=== PATIENT | female | born 2005 | race African-American/Black ===

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

== ENCOUNTER 2023-01-08 20:48 | Emergency (ER) | payer BC ==
[2023-01-08] MEDS ORDERED: predniSONE 20 MG TAB ONE (21:41)
== END 2023-01-08 22:08 | disposition home or self-care (01) ==
LOC: CSHERS 20:48
DX: T78.40XA Allergy, unspecified, initial encounter (principal)
CPT/HCPCS: 99283; J7512

== ENCOUNTER 2023-09-20 19:54 | Emergency (ER) | payer BC | END 2023-09-21 00:25 | disposition home or self-care (01) | LOC: CSHERS 19:54 | DX: R55 Syncope and collapse (principal); M32.9 Systemic lupus erythematosus, unspecified | CPT/HCPCS: 93005 ==

== ENCOUNTER 2023-11-01 12:08 | Inpatient (IN) | payer BC ==
[~2023-11-01 12:08] MED LIST: Iopamidol 370 76% 100 ML VIAL ONE
[2023-11-01] MEDS ORDERED: Dextrose 50% Abboject 50 ML SYRINGE ONE (12:27)
[2023-11-01 12:53] LABS: BHCG - Serum Negative (NEGATIVE); Pregs Control Background? CLEAR/WHITE (CLR/WHITE); Pregs Control Bar Appear? YES (CONTROL BAR)
[2023-11-01 12:54] LABS: ALT (SGPT) 8 U/L (8-55); AST (SGOT) 15 U/L (5-34); Albumin 3.2 g/dL (3.5-5.0); Alkaline Phosphatase 37 U/L (40-100); Anion Gap 14 mmol/L (10-20); BUN (Urea Nitrogen) 8 mg/dL (7.0-18.7); Bilirubin, Total 0.5 mg/dL (0.2-1.2); Calc. Creatinine Clearance 0 mL/min (70-130); Carbon Dioxide 21 mmol/L (22-29); Chloride 102 mmol/L (98-107); Estimated GFR 113; Globulin 3.8 g/dL (2.4-3.5); Glucose 90 mg/dL (70-105); Potassium 3.7 mmol/L (3.5-5.1); Sodium 133 mmol/L (136-145)
[2023-11-01 12:58] LABS: Hematocrit 29.1 % (34.9-44.5); Hemoglobin 9.3 g/dL (12.0-15.5); Mean Corpuscular Hemoglobin 26.9 pg (27.0-33.0); Mean Corpuscular Volume 84.1 fl (81.6-98.3); Mean Platelet Volume 9.7 fl (7.4-10.4); Platelet Count 250 10x3/uL (150-450); RBC Distribution Width 15.1 % (11.5-14.5); Red Blood Cell (RBC) Count 3.46 10x6/uL (3.90-5.03); White Blood Cell (WBC) Count 5.6 10x3/uL (3.5-10.5)
[2023-11-01 12:59] LABS: MDiff Complete? YES
[2023-11-01 13:31] LABS: Band 3 % (5-11); Lymphocytes 17 % (28-48); Monocytes 4 % (0-4); Neutrophil 76 % (31-61); Troponin I Less than 0.010 ng/mL (< 0.028)
[2023-11-01 13:32] LABS: Platelet Adequacy Comment Appears Adequate; RBC Morph Comment Within Normal Limits
[2023-11-01 14:07] LABS: Bilirubin Neg (Negative); Blood, Urine 250 (Negative); Clarity Slightly Cloudy (Clear); Glucose, Urine (Dipstick) Normal (Negative); Ketone, Urine 5 mg/dL (Negative); Leukocyte Negative (Negative); Nitrite Positive (Negative); Protein, Urine (Dipstick) 15 mg/dl (Neg-Trace)
[2023-11-01 14:20] LABS: Bacteria/HPF 4+ HPF (None Seen); CAUTI Indications for Culture Pelvic or flank pain; RBC/HPF 0-3 HPF (0-3); Squamous Epithelial 0-3 HPF (0-3); Urine Culture Reflex No No; WBC/HPF None Seen HPF (0-3)
[2023-11-01] MEDS ORDERED: cefTRIAXone (ROCEPHIN) 2 GM VIAL ONE (14:27)
[2023-11-01] MEDS ORDERED: Acetaminophen 325 MG TAB PO PRN (15:17)
[2023-11-01 16:02] LABS: Iron 14 ug/dL (50-170); Iron Binding Capacity, Total 235 mcg/dL (265-497)
[2023-11-01] MEDS ORDERED: Ketorolac Tromethamine 30 MG (1 mL) VIAL ONE (17:05)
[2023-11-01 20:23] VITALS: BMI 30.2
[2023-11-01] MEDS: Famotidine 20 MG TAB PO SCH (20:56)
[2023-11-01] MEDS: Azithromycin 500 MG in Sodium Chloride 0.9% 250 ML 250 ML IVPB SCH (20:58)
[2023-11-01] MEDS ORDERED: Sodium Chloride 0.9% 1,000 ML IV SCH (21:00)
[2023-11-01] MEDS ORDERED: traMADol HCl 50 MG TAB PO SCH (21:00)
[2023-11-02 04:01] LABS: ALT (SGPT) Less than 7 U/L (8-55); AST (SGOT) 14 U/L (5-34); Albumin 2.6 g/dL (3.5-5.0); Alkaline Phosphatase 33 U/L (40-100); Anion Gap 9 mmol/L (10-20); BUN (Urea Nitrogen) 8 mg/dL (7.0-18.7); Bilirubin, Total 0.2 mg/dL (0.2-1.2); Calc. Creatinine Clearance 158 mL/min (70-130); Calcium 7.4 mg/dL (7.8-10.44); Carbon Dioxide 22 mmol/L (22-29); Chloride 108 mmol/L (98-107); Estimated GFR 128; Globulin 3.3 g/dL (2.4-3.5); Glucose 106 mg/dL (70-105); Protein, Total 5.9 g/dL (6.0-8.3); Sodium 135 mmol/L (136-145)
[2023-11-02 04:26] LABS: #Monocytes 0.2 10x3/uL (0.0-1.1); #Neutrophils 2.7 10x3/uL (1.5-8.4); %Basophils 0.5 % (0.0-2.0); %Monocytes 5.3 % (0.0-10.0); %Neutrophils 61.4 % (40.0-75.0); Hematocrit 24.6 % (34.9-44.5); Hemoglobin 7.8 g/dL (12.0-15.5); Mean Corpuscular HGB CONC 31.7 g/dL (32.0-36.0); Mean Corpuscular Hemoglobin 26.7 pg (27.0-33.0); Mean Corpuscular Volume 84.2 fl (81.6-98.3); Mean Platelet Volume 9.6 fl (7.4-10.4); Platelet Count 211 10x3/uL (150-450); RBC Distribution Width 15.2 % (11.5-14.5); Red Blood Cell (RBC) Count 2.92 10x6/uL (3.90-5.03); White Blood Cell (WBC) Count 4.4 10x3/uL (3.5-10.5)
[2023-11-02] MEDS: Famotidine 20 MG TAB PO SCH (09:10)
[2023-11-02] MEDS ORDERED: traMADol HCl 50 MG TAB PO PRN (09:12)
[2023-11-02] MEDS ORDERED: Morphine 2 MG/ML VIAL SLOW IVP PRN (09:12)
[2023-11-02] MEDS: Ondansetron PF 4 MG/2 ML Vial IVP PRN ×2 (11:14→17:54)
[2023-11-02] MEDS ORDERED: Hydrocortisone Sod Succ/PF 250 mg/2 ml Vial SLOW IVP SCH (12:59)
[2023-11-02] MEDS ORDERED: Polyethylene Glycol 3350 17 GM Packet PO SCH (13:00)
[2023-11-02 15:24] LABS: HIV (1/2) Antibody/Antigen Non-Reactive (NonReactive); HIV 1/2 INDEX 0.14 S/CO (<1.00)
[2023-11-02 15:25] LABS: Syphilis Antibody Nonreactive (Nonreactive); Syphilis Antibody Index 0.14 S/CO (<1.00 Non-Reactive)
[2023-11-02] MEDS ORDERED: cefTRIAXone\\ROCEPHIN 1 GM in Sodium Chloride 0.9% 100 ML IVPB SCH (15:30)
[2023-11-02 16:28] LABS: Reference Lab Name LABCORP
[2023-11-02 16:35] LABS: Ref Lab Test Ordered SMITH AB; Reference Lab Name LABCORP
[2023-11-02 16:38] LABS: Complement-C3 36 mg/dL (83-193); Complement-C4 6 mg/dL (15-57)
[2023-11-02] MEDS: Ferrous Sulfate 325 MG TAB PO SCH (17:54)
[2023-11-02] MEDS: Azithromycin 500 MG in Sodium Chloride 0.9% 250 ML 250 ML IVPB SCH (21:25)
[2023-11-02] MEDS: Hydroxychloroquine Sulfate 200 MG TAB PO SCH (21:25)
[2023-11-02] MEDS: Senokot S 8.6-50 MG TAB PO SCH (21:25)
[2023-11-03] MEDS: Ferrous Sulfate 325 MG TAB PO SCH ×2 (08:19→17:19)
[2023-11-03] MEDS: predniSONE 50 MG TAB PO SCH (08:19)
[2023-11-03 08:42] LABS: ALT (SGPT) 8 U/L (8-55); AST (SGOT) 16 U/L (5-34); Albumin 3.1 g/dL (3.5-5.0); Alkaline Phosphatase 36 U/L (40-100); Anion Gap 13 mmol/L (10-20); BUN (Urea Nitrogen) 8 mg/dL (7.0-18.7); Bilirubin, Total 0.3 mg/dL (0.2-1.2); Calc. Creatinine Clearance 161 mL/min (70-130); Calcium 8.4 mg/dL (7.8-10.44); Carbon Dioxide 22 mmol/L (22-29); Chloride 107 mmol/L (98-107); Estimated GFR 129; Globulin 4.2 g/dL (2.4-3.5); Glucose 105 mg/dL (70-105); Protein, Total 7.3 g/dL (6.0-8.3); Sodium 138 mmol/L (136-145)
[2023-11-03 09:48] LABS: Hematocrit 27.5 % (34.9-44.5); Hemoglobin 8.9 g/dL (12.0-15.5); Mean Corpuscular HGB CONC 32.4 g/dL (32.0-36.0); Mean Corpuscular Hemoglobin 27.5 pg (27.0-33.0); Mean Corpuscular Volume 84.9 fl (81.6-98.3); Mean Platelet Volume 9.6 fl (7.4-10.4); Platelet Count 258 10x3/uL (150-450); RBC Distribution Width 14.9 % (11.5-14.5); Red Blood Cell (RBC) Count 3.24 10x6/uL (3.90-5.03); White Blood Cell (WBC) Count 5.7 10x3/uL (3.5-10.5)
[2023-11-03 10:12] LABS: Band 3 % (5-11); Lymphocytes 12 % (28-48); Metamyelocyte 2 % (0-0); Monocytes 8 % (0-4); Neutrophil 73 % (31-61); Reactive Lymphocytes 2 % (0-10)
[2023-11-03 10:17] LABS: MDiff Complete? YES; Platelet Adequacy Comment Appears Adequate
[2023-11-03 10:21] LABS: RBC Morph Comment Within Normal Limits
[2023-11-03] MEDS: Senokot S 8.6-50 MG TAB PO SCH ×2 (10:21→21:11)
[2023-11-03] MEDS: Hydroxychloroquine Sulfate 200 MG TAB PO SCH ×2 (10:21→21:11)
[2023-11-03] MEDS: Meloxicam 7.5 MG TAB PO SCH (10:21)
[2023-11-03 13:06] LABS: HBCM Index 0.06 S/CO (0-0.79); Hep A IgM AB Non-Reactive S/CO (NonReactive); Hep C IgG Ab Non-Reactive S/CO (NonReactive); Hep C Index 0.42 S/CO (0-0.79); Hepatitis B Core IgM Abs Non-Reactive S/CO (NonReactive)
[2023-11-03 13:38] LABS: HBSAg Index 0.28 S/CO (0-0.99); Hep B Surf Ag Non-Reactive S/CO (NonReactive)
[2023-11-03] MEDS ORDERED: Ondansetron ODT 4 MG TAB PO PRN (20:15)
[2023-11-03] MEDS: Cefdinir 300 MG CAP PO SCH (21:11)
[2023-11-04 08:23] VITALS: BP 98/60; TEMP 98.2
[2023-11-04] MEDS: Cefdinir 300 MG CAP PO SCH (08:32)
[2023-11-04] MEDS: predniSONE 50 MG TAB PO SCH (08:32)
[2023-11-04] MEDS: Meloxicam 7.5 MG TAB PO SCH (08:32)
[2023-11-04] MEDS: Senokot S 8.6-50 MG TAB PO SCH (08:36)
[2023-11-04] MEDS: Ferrous Sulfate 325 MG TAB PO SCH (08:36)
== END 2023-11-04 10:00 | disposition home or self-care (01) | DRG 545 ==
LOC: CSHERS 12:08 → CSHERHOLD 15:09 → CSHPP 20:26 → OBSVTOIN 11-02 12:57
PROVIDERS: ADMIT Internal Medicine; ATTEND Internal Medicine
DX: M32.9 Systemic lupus erythematosus, unspecified (principal); J18.9 Pneumonia, unspecified organism; D84.9 Immunodeficiency, unspecified; J90 Pleural effusion, not elsewhere classified; N39.0 Urinary tract infection, site not specified; D50.9 Iron deficiency anemia, unspecified; R59.0 Localized enlarged lymph nodes
CPT/HCPCS: 36415; 36416; 71045; 71275; 74177; 80053; 80074; 81001; 82607; 83540; 83550; 83615; 84484; 84550; 84703; 85025; 85379; 86140; 86160; 86780; 87040; 87389; 88184; 93005; J0456; J0696; J1720; J1885; J2405; J3490; J7050; J7512; J7999; Q0162; Q9967

== ENCOUNTER 2024-03-14 10:59 | Emergency (ER) | payer BC ==
[2024-03-14] MEDS ORDERED: Ondansetron PF 4 MG/2 ML Vial ONE (11:24)
[2024-03-14] MEDS ORDERED: Ketorolac Tromethamine 30 MG (1 mL) VIAL ONE (11:24)
[2024-03-14 12:06] LABS: #Neutrophils 2.03 10x3/uL (1.5-8.4); %Neutrophils 60.4 % (40.0-75.0); Hematocrit 32.8 % (34.9-44.5); Hemoglobin 10.6 g/dL (12.0-15.5); Mean Corpuscular HGB CONC 32.3 g/dL (32.0-36.0); Mean Corpuscular Volume 83.5 fl (81.6-98.3); Platelet Count 188 10x3/uL (150-450); RBC Distribution Width 15.9 % (11.5-14.5); Red Blood Cell (RBC) Count 3.93 10x6/uL (3.90-5.03); White Blood Cell (WBC) Count 3.4 10x3/uL (3.5-10.5)
[2024-03-14 12:11] LABS: BHCG - Serum Negative (NEGATIVE); Pregs Control Background? CLEAR/WHITE (CLR/WHITE); Pregs Control Bar Appear? YES (CONTROL BAR)
[2024-03-14 12:18] LABS: ALT (SGPT) 12 U/L (8-55); AST (SGOT) 21 U/L (5-34); Albumin 3.1 g/dL (3.5-5.0); Alkaline Phosphatase 55 U/L (40-100); Anion Gap 10 mmol/L (10-20); BUN (Urea Nitrogen) 7 mg/dL (7.0-18.7); Bilirubin, Total 0.3 mg/dL (0.2-1.2); Calc. Creatinine Clearance 0 mL/min (70-130); Calcium 8.4 mg/dL (7.8-10.44); Carbon Dioxide 24 mmol/L (22-29); Chloride 105 mmol/L (98-107); Estimated GFR 127; Globulin 3.7 g/dL (2.4-3.5); Glucose 82 mg/dL (70-105); Lipase 22 U/L (8-78); Potassium 3.8 mmol/L (3.5-5.1); Protein, Total 6.8 g/dL (6.0-8.3); Sodium 135 mmol/L (136-145)
== END 2024-03-14 14:29 | disposition home or self-care (01) ==
LOC: CSHERS 10:59
DX: R11.10 Vomiting, unspecified (principal); R10.9 Unspecified abdominal pain
CPT/HCPCS: 80053; 83690; 84703; 85025; 96361; 96374; 96375; J1885; J2405

== ENCOUNTER 2024-08-11 22:47 | Inpatient (IN) | payer BC ==
[2024-08-11] MEDS ORDERED: Metoclopramide HCl 10 MG (2 mL) VIAL ONE (23:37)
[2024-08-11] MEDS ORDERED: Acetaminophen 325 MG TAB ONE (23:37)
[2024-08-11] MEDS ORDERED: Ketorolac Tromethamine 30 MG (1 mL) VIAL ONE (23:37)
[2024-08-12 00:35] LABS: #Monocytes 0.53 10x3/uL (0.0-1.1); #Neutrophils 5.91 10x3/uL (1.5-8.4); %Lymphocytes 14.7 % (18.0-47.0); %Monocytes 6.9 % (0.0-10.0); %Neutrophils 77.4 % (40.0-75.0); Hematocrit 27.4 % (34.9-44.5); Hemoglobin 8.9 g/dL (12.0-15.5); Mean Corpuscular HGB CONC 32.5 g/dL (32.0-36.0); Mean Corpuscular Hemoglobin 26.8 pg (27.0-33.0); Mean Corpuscular Volume 82.5 fL (81.6-98.3); Mean Platelet Volume 10.7 fL (7.4-10.4); Platelet Count 123 10x3/uL (150-450); RBC Distribution Width 15.9 % (11.5-14.5); Red Blood Cell (RBC) Count 3.32 10x6/uL (3.90-5.03); White Blood Cell (WBC) Count 7.6 10x3/uL (3.5-10.5)
[2024-08-12] MEDS ORDERED: cefTRIAXone (ROCEPHIN) 1 GM VIAL ONE ×2 (00:42→02:28)
[2024-08-12] MEDS ORDERED: Azithromycin 500 MG VIAL ONE (00:43)
[2024-08-12 01:15] LABS: BHCG - Serum Negative (NEGATIVE)
[2024-08-12 01:16] LABS: Pregs Control Background? CLEAR/WHITE (CLR/WHITE); Pregs Control Bar Appear? YES (CONTROL BAR)
[2024-08-12 01:23] LABS: ALT (SGPT) 12 U/L (8-55); AST (SGOT) 21 U/L (5-34); Albumin 2.6 g/dL (3.5-5.0); Alkaline Phosphatase 33 U/L (40-110); Anion Gap 12 mmol/L (10-20); BUN (Urea Nitrogen) 10 mg/dL (7.0-18.7); Bilirubin, Total 0.7 mg/dL (0.2-1.2); Calc. Creatinine Clearance 0 mL/min (70-130); Calcium 7.9 mg/dL (7.8-10.44); Carbon Dioxide 21 mmol/L (22-29); Chloride 104 mmol/L (98-107); Estimated GFR 118; Globulin 4.3 g/dL (2.4-3.5); Glucose 96 mg/dL (70-105); Potassium 3.4 mmol/L (3.5-5.1); Protein, Total 6.9 g/dL (6.0-8.3); Sodium 134 mmol/L (136-145)
[2024-08-12 03:47] VITALS: BMI 35.4
[2024-08-12 03:47] LABS: Iron Binding Capacity, Total 206 mcg/dL (265-497); Magnesium 1.7 mg/dL (1.6-2.6)
[2024-08-12] MEDS: Sodium Chloride 0.9% 1,000 ML IV SCH (04:01)
[2024-08-12] MEDS: Potassium Chloride 20 MEQ TAB PO SCH (04:01)
[2024-08-12 04:18] LABS: Iron Less than 8 ug/dL (50-170)
[2024-08-12 07:40] LABS: Bilirubin Neg (Negative); Blood, Urine Negative (Negative); Clarity Clear (Clear); Glucose, Urine (Dipstick) Normal (Negative); Ketone, Urine Negative (Negative); Leukocyte Negative (Negative); Nitrite Negative (Negative); Protein, Urine (Dipstick) 30 mg/dl (Neg-Trace); Specific Gravity, Urine 1.015 (1.005-1.030)
[2024-08-12 07:56] LABS: Bacteria/HPF 1+ HPF (None Seen); RBC/HPF 0-3 HPF (0-3); WBC/HPF 0-3 HPF (0-3)
[2024-08-12] MEDS ORDERED: Ondansetron ODT 4 MG TAB PO PRN (08:10)
[2024-08-12] MEDS ORDERED: predniSONE 10 MG TAB PO SCH (09:00)
[2024-08-12] MEDS: Enoxaparin 40 MG (0.4 mL) SYRINGE SC SCH (09:39)
[2024-08-12] MEDS: Multivitamin W/ Minerals 1 TAB PO SCH (09:39)
[2024-08-12] MEDS: predniSONE 10 MG TAB PO SCH (09:39)
[2024-08-12] MEDS: Pantoprazole DR 40 MG TAB PO SCH (09:39)
[2024-08-12] MEDS: Acetaminophen 325 MG TAB PO PRN (12:36)
[2024-08-12] MEDS ORDERED: Ibuprofen 200 MG TAB PO PRN (12:53)
[2024-08-12] MEDS: guaiFENesin/DM ER PO SCH ×2 (13:35→20:55)
[2024-08-12] MEDS: Sodium Ferric Gluconate 250 MG in Sodium Chloride 0.9% 250 ML 250 ML IVPB SCH (18:35)
[2024-08-13] MEDS: Azithromycin 500 MG in Sodium Chloride 0.9% 250 ML 250 ML IVPB SCH (01:48)
[2024-08-13] MEDS ORDERED: cefTRIAXone\\ROCEPHIN 2 GM in Sodium Chloride 0.9% 100 ML IVPB SCH (02:00)
[2024-08-13] MEDS: cefTRIAXone\\ROCEPHIN 2 GM in Sodium Chloride 0.9% 100 ML IVPB SCH ×4 (03:02→10:28)
[2024-08-13 04:21] LABS: #Basophils 0.01 10x3/uL (0.0-0.2); #Monocytes 0.28 10x3/uL (0.0-1.1); #Neutrophils 3.01 10x3/uL (1.5-8.4); %Basophils 0.2 % (0.0-2.0); %Lymphocytes 29.5 % (18.0-47.0); %Monocytes 5.7 % (0.0-10.0); %Neutrophils 60.8 % (40.0-75.0); Hematocrit 27.1 % (34.9-44.5); Hemoglobin 8.7 g/dL (12.0-15.5); Mean Corpuscular HGB CONC 32.1 g/dL (32.0-36.0); Mean Corpuscular Volume 84.2 fL (81.6-98.3); Mean Platelet Volume 12.2 fL (7.4-10.4); Platelet Count 136 10x3/uL (150-450); RBC Distribution Width 16.4 % (11.5-14.5); Red Blood Cell (RBC) Count 3.22 10x6/uL (3.90-5.03)
[2024-08-13 04:37] LABS: Anion Gap 14 mmol/L (10-20); BUN (Urea Nitrogen) 7 mg/dL (7.0-18.7); Calc. Creatinine Clearance 206 mL/min (70-130); Calcium 7.9 mg/dL (7.8-10.44); Carbon Dioxide 19 mmol/L (22-29); Chloride 111 mmol/L (98-107); Estimated GFR 130; Glucose 106 mg/dL (70-105); Iron 327 ug/dL (50-170); Potassium 3.9 mmol/L (3.5-5.1); Sodium 140 mmol/L (136-145)
[2024-08-13 09:34] VITALS: BP 119/80; TEMP 97.4
== END 2024-08-13 12:00 | disposition home or self-care (01) | DRG 194 ==
LOC: CSHERS 22:47 → CSHTELE 08-12 03:05
PROVIDERS: ADMIT Family Medicine; ATTEND Family Medicine
DX: J18.9 Pneumonia, unspecified organism (principal); D84.9 Immunodeficiency, unspecified; J91.8 Pleural effusion in other conditions classified elsewhere; D50.9 Iron deficiency anemia, unspecified; E87.6 Hypokalemia; E88.09 Other disorders of plasma-protein metabolism, not elsewhere classified; M32.9 Systemic lupus erythematosus, unspecified; Z79.899 Other long term (current) drug therapy; Z79.52 Long term (current) use of systemic steroids
CPT/HCPCS: 36415; 71046; 80048; 80053; 81001; 82607; 82728; 83540; 83550; 83605; 83735; 84145; 84703; 85025; 87040; 87428; 93005; 96365; 96367; 96375; J0456; J0696; J1650; J1885; J2765; J2916; J7030; J7050; J7512

== ENCOUNTER 2024-10-22 07:15 | Emergency (ER) | payer BC ==
[2024-10-22] MEDS ORDERED: Ondansetron PF 4 MG/2 ML Vial ONE (07:57)
[2024-10-22] MEDS ORDERED: methylPREDNISolone Sod Succ/PF 125 MG/2 ML VIAL ONE (07:57)
[2024-10-22 08:35] LABS: Anion Gap 15 mmol/L (10-20); BUN (Urea Nitrogen) 10 mg/dL (7.0-18.7); Calc. Creatinine Clearance 0 mL/min (70-130); Carbon Dioxide 20 mmol/L (22-29); Chloride 106 mmol/L (98-107); Estimated GFR 129; Glucose 95 mg/dL (70-105); Potassium 4.1 mmol/L (3.5-5.1); Sodium 137 mmol/L (136-145)
== END 2024-10-22 08:59 | disposition home or self-care (01) ==
LOC: CSHERS 07:15
DX: M32.9 Systemic lupus erythematosus, unspecified (principal)
CPT/HCPCS: 80048; 96374; 96375; J2405; J2919

== ENCOUNTER 2024-11-06 15:00 | Emergency (ER) | payer BC ==
[2024-11-06] MEDS ORDERED: Ondansetron PF 4 MG/2 ML Vial ONE ×2 (15:21→16:23)
[2024-11-06 16:10] LABS: #Basophils Less than 0.03 10x3/uL (0.0-0.2); #Eosinophils Less than 0.03 10x3/uL (0.0-0.5); #Monocytes 0.34 10x3/uL (0.0-1.1); #Neutrophils 4.61 10x3/uL (1.5-8.4); %Basophils 0.2 % (0.0-2.0); %Lymphocytes 16.1 % (18.0-47.0); %Monocytes 5.7 % (0.0-10.0); %Neutrophils 76.7 % (40.0-75.0); Hematocrit 42.1 % (34.9-44.5); Hemoglobin 12.9 g/dL (12.0-15.5); Mean Corpuscular HGB CONC 30.6 g/dL (32.0-36.0); Mean Corpuscular Volume 91.3 fL (81.6-98.3); Mean Platelet Volume 8.7 fL (7.4-10.4); Platelet Count 240 10x3/uL (150-450); RBC Distribution Width 17.5 % (11.5-14.5); Red Blood Cell (RBC) Count 4.61 10x6/uL (3.90-5.03); White Blood Cell (WBC) Count 6.01 10x3/uL (3.5-10.5)
[2024-11-06 16:31] LABS: BHCG - Serum Negative (NEGATIVE); Pregs Control Background? CLEAR/WHITE (CLR/WHITE); Pregs Control Bar Appear? YES (CONTROL BAR)
[2024-11-06 16:35] LABS: ALT (SGPT) 23 U/L (8-55); AST (SGOT) 19 U/L (5-34); Albumin 3.8 g/dL (3.5-5.0); Alkaline Phosphatase 57 U/L (40-110); Anion Gap 16 mmol/L (10-20); BUN (Urea Nitrogen) 15 mg/dL (7.0-18.7); Bilirubin, Total 0.3 mg/dL (0.2-1.2); Calc. Creatinine Clearance 0 mL/min (70-130); Calcium 9.5 mg/dL (7.8-10.44); Carbon Dioxide 24 mmol/L (22-29); Chloride 102 mmol/L (98-107); Estimated GFR 114; Globulin 4.3 g/dL (2.4-3.5); Glucose 84 mg/dL (70-105); Lipase 34 U/L (8-78); Magnesium 2.3 mg/dL (1.6-2.6); Potassium 3.6 mmol/L (3.5-5.1); Protein, Total 8.1 g/dL (6.0-8.3); Sodium 138 mmol/L (136-145)
== END 2024-11-06 18:03 | disposition home or self-care (01) ==
LOC: CSHERS 15:00
DX: R11.2 Nausea with vomiting, unspecified (principal)
CPT/HCPCS: 80053; 83605; 83690; 83735; 84703; 85025; 96374; 96376; J2405

== ENCOUNTER 2025-08-23 07:53 | Outpatient (CLI) | payer BC | END 2025-08-23 07:54 | disposition home or self-care (01) | LOC: CSHULT 07:53 | PROVIDERS: ATTEND Internal Medicine Rheumatology | DX: M32.9 Systemic lupus erythematosus, unspecified (principal); R11.2 Nausea with vomiting, unspecified | CPT/HCPCS: 76705 ==

== ENCOUNTER 2025-08-25 11:19 | Inpatient (IN) | payer BC ==
[2025-08-25 12:44] LABS: #Basophils Less than 0.03 10x3/uL (0.0-0.2); #Eosinophils Less than 0.03 10x3/uL (0.0-0.5); #Monocytes 0.46 10x3/uL (0.0-1.1); #Neutrophils 5.50 10x3/uL (1.5-8.4); %Basophils 0.1 % (0.0-2.0); %Eosinophils 0.0 % (0.0-6.0); %Lymphocytes 13.8 % (18.0-47.0); %Monocytes 6.6 % (0.0-10.0); %Neutrophils 78.9 % (40.0-75.0); Hematocrit 35.1 % (34.9-44.5); Hemoglobin 11.5 g/dL (12.0-15.5); Mean Corpuscular Hemoglobin 28.8 pg (27.0-33.0); Mean Corpuscular Volume 88.0 fL (81.6-98.3); Platelet Count 140 10x3/uL (150-450); Red Blood Cell (RBC) Count 3.99 10x6/uL (3.90-5.03); White Blood Cell (WBC) Count 6.97 10x3/uL (3.5-10.5)
[2025-08-25 12:53] LABS: ALT (SGPT) 24 U/L (Less than 34); AST (SGOT) 25 U/L (11-34); Albumin 3.1 g/dL (3.1-4.5); Alkaline Phosphatase 54 U/L (40-110); Anion Gap 17 mmol/L (10-20); BHCG - Serum Negative (NEGATIVE); BUN (Urea Nitrogen) 7 mg/dL (7.0-18.7); Bilirubin, Total 0.7 mg/dL (0.3-1.2); Calc. Creatinine Clearance 0 mL/min (70-130); Calcium 8.3 mg/dL (7.8-10.44); Carbon Dioxide 19 mmol/L (22-29); Chloride 100 mmol/L (98-107); Globulin 3.6 g/dL (2.4-3.5); Glucose 94 mg/dL (70-105); Potassium 3.4 mmol/L (3.5-5.1); Pregs Control Background? CLEAR/WHITE (CLR/WHITE); Pregs Control Bar Appear? YES (CONTROL BAR); Sodium 133 mmol/L (136-145)
[2025-08-25 12:57] LABS: Troponin I Less than 0.010 ng/mL (< 0.028)
[2025-08-25 13:05] LABS: Actual Bicarbonate (HCO3v) 20.8 mEq/L (22-28); Analyzer IN Cardio CS ER; Base Excess -1.1 mEq/L (-2 - +2); Calcium, Ionized (venous) 1.05 mmol/L (1.16-1.32); Chloride (VBG) 99 mmol/L (98-106); Critical Notified Whom: NWAAS; Hematocrit-VBG 38 % (36.0-47.0); Hemoglobin (Hb) 12.9 g/dL (11.7-15.5); Potassium (VBG) 3.31 mmol/L (3.70-5.30); Puncture Site Other Site; RapidComm Collect By LAB; Sodium 131 mmol/L (133-146)
[2025-08-25 14:19] LABS: Glucose, Urine (Dipstick) Normal (Negative); Leukocyte Negative (Negative); Protein, Urine (Dipstick) Negative (Neg-Trace); Specific Gravity, Urine 1.010 (1.005-1.030)
[2025-08-25 14:27] LABS: Bacteria/HPF Rare-Few HPF (None Seen); CAUTI Indications for Culture Pelvic or flank pain; Trichomonas/HPF 1+ HPF (None Seen)
[2025-08-25 14:28] LABS: Urine Culture Reflex No No
[2025-08-25 15:56] VITALS: BMI 44.4
[2025-08-25] MEDS: Potassium Bicarbonate/Cit Ac 20 MEQ TAB PO SCH (16:44)
[2025-08-25] MEDS: Acetaminophen 325 MG TAB PO PRN (16:44)
[2025-08-25 18:11] LABS: SARS-CoV-2 E Target Positive; SARS-CoV-2 N2 Target Negative; SARS-CoV-2 NAA Rapid Test DETECTED (NotDetected); SARS-CoV-2 RdRP gene Negative
[2025-08-25] MEDS: VANCOMYCIN 1.25 GM/250 ML BAG 1.25 GM in Premix 1 BAG IVPB SCH (22:25)
[2025-08-26 04:08] LABS: #Basophils Less than 0.03 10x3/uL (0.0-0.2); #Eosinophils Less than 0.03 10x3/uL (0.0-0.5); #Monocytes 0.21 10x3/uL (0.0-1.1); #Neutrophils 5.04 10x3/uL (1.5-8.4); %Basophils 0.2 % (0.0-2.0); %Eosinophils 0.2 % (0.0-6.0); %Lymphocytes 15.0 % (18.0-47.0); %Monocytes 3.4 % (0.0-10.0); %Neutrophils 80.4 % (40.0-75.0); Hematocrit 35.3 % (34.9-44.5); Hemoglobin 11.3 g/dL (12.0-15.5); Mean Corpuscular Hemoglobin 28.3 pg (27.0-33.0); Mean Corpuscular Volume 88.3 fL (81.6-98.3); Platelet Count 248 10x3/uL (150-450); Red Blood Cell (RBC) Count 4.00 10x6/uL (3.90-5.03); White Blood Cell (WBC) Count 6.26 10x3/uL (3.5-10.5)
[2025-08-26 04:19] LABS: Vancomycin, Random 7.2 ug/mL (See Comment)
[2025-08-26 04:22] LABS: Anion Gap 15 mmol/L (10-20); BUN (Urea Nitrogen) 6 mg/dL (7.0-18.7); Calc. Creatinine Clearance 203 mL/min (70-130); Calcium 8.0 mg/dL (7.8-10.44); Carbon Dioxide 17 mmol/L (22-29); Chloride 104 mmol/L (98-107); Glucose 87 mg/dL (70-105); Potassium 4.5 mmol/L (3.5-5.1); Sodium 131 mmol/L (136-145)
[2025-08-26] MEDS: VANCOMYCIN 1.25 GM/250 ML BAG 1.25 GM in Premix 1 BAG IVPB SCH ×3 (04:32→21:36)
[2025-08-26] MEDS: VANCOMYCIN 1.25 GM/250 ML BAG ONE (04:46)
[2025-08-26] MEDS: Aspirin 325 MG TAB PO SCH (06:14)
[2025-08-26] MEDS: Dexamethasone 10 MG/ML VIAL SLOW IVP SCH (06:15)
[2025-08-26] MEDS ORDERED: predniSONE 10 MG TAB PO SCH (08:00)
[2025-08-26] MEDS: REMDESIVIR 200 MG in Sodium Chloride 0.9% 250 ML 210 ML IV SCH (08:32)
[2025-08-26] MEDS: Cholecalciferol 1,000 UNITS (25 MCG) TAB PO SCH (08:33)
[2025-08-26] MEDS: Enoxaparin 40 MG (0.4 mL) SYRINGE SC SCH (08:35)
[2025-08-27 04:36] LABS: #Basophils Less than 0.03 10x3/uL (0.0-0.2); #Eosinophils Less than 0.03 10x3/uL (0.0-0.5); #Monocytes 0.31 10x3/uL (0.0-1.1); #Neutrophils 6.84 10x3/uL (1.5-8.4); %Basophils 0.1 % (0.0-2.0); %Eosinophils 0.0 % (0.0-6.0); %Lymphocytes 8.4 % (18.0-47.0); %Monocytes 3.9 % (0.0-10.0); %Neutrophils 86.6 % (40.0-75.0); Hematocrit 36.4 % (34.9-44.5); Hemoglobin 11.6 g/dL (12.0-15.5); Mean Corpuscular Hemoglobin 28.1 pg (27.0-33.0); Mean Corpuscular Volume 88.1 fL (81.6-98.3); Platelet Count 285 10x3/uL (150-450); Red Blood Cell (RBC) Count 4.13 10x6/uL (3.90-5.03); White Blood Cell (WBC) Count 7.90 10x3/uL (3.5-10.5)
[2025-08-27 04:49] LABS: Anion Gap 13 mmol/L (10-20); BUN (Urea Nitrogen) 11 mg/dL (7.0-18.7); Calc. Creatinine Clearance 228 mL/min (70-130); Calcium 8.7 mg/dL (7.8-10.44); Carbon Dioxide 20 mmol/L (22-29); Chloride 108 mmol/L (98-107); Glucose 126 mg/dL (70-105); Potassium 4.3 mmol/L (3.5-5.1); Sodium 137 mmol/L (136-145)
[2025-08-27 04:50] LABS: Vancomycin, Random 18.0 ug/mL (See Comment)
[2025-08-27] MEDS: Dexamethasone 10 MG/ML VIAL SLOW IVP SCH (10:11)
[2025-08-27] MEDS: REMDESIVIR 100 MG in Sodium Chloride 0.9% 250 ML 230 ML IV SCH (10:11)
[2025-08-27] MEDS: Aspirin 81 mg Enteric Coated Tablet PO SCH (10:19)
[2025-08-27] MEDS: cefTRIAXone\\ROCEPHIN 2 GM in Sodium Chloride 0.9% 100 ML IVPB SCH (13:40)
[2025-08-27 13:51] VITALS: BP 122/85; TEMP 98.7
[2025-08-27] MEDS ORDERED: Vancomycin 1 GM in Sodium Chloride 0.9% 250 ML 250 ML IVPB SCH (14:00)
[2025-08-27] MEDS: PNEUMOC 20-VAL CONJ-DIP CRM/PF 0.5 ML SYRINGE IM ONE (15:01)
== END 2025-08-27 15:30 | disposition home or self-care (01) | DRG 871 ==
LOC: CSHERS 11:19 → CSHTELE 14:53
PROVIDERS: ADMIT Student in an Organized Health Care Education/Training Program; ATTEND Student in an Organized Health Care Education/Training Program
PROC: 3E03329 Introduction of Other Anti-infective into Peripheral Vein, Percutaneous Approach (ICD-10-PCS; principal; 2025-08-25)
PROC: 3E0234Z Introduction of Serum, Toxoid and Vaccine into Muscle, Percutaneous Approach (ICD-10-PCS; 2025-08-25)
DX: A41.89 Other specified sepsis (principal); J12.82 Pneumonia due to coronavirus disease 2019; U07.1 COVID-19; J90 Pleural effusion, not elsewhere classified; E87.1 Hypo-osmolality and hyponatremia; D84.9 Immunodeficiency, unspecified; A41.9 Sepsis, unspecified organism; M32.10 Systemic lupus erythematosus, organ or system involvement unspecified; M06.89 Other specified rheumatoid arthritis, multiple sites; F10.90 Alcohol use, unspecified, uncomplicated; D69.6 Thrombocytopenia, unspecified; I48.91 Unspecified atrial fibrillation; E87.6 Hypokalemia; R82.71 Bacteriuria; Z23 Encounter for immunization
CPT/HCPCS: 36415; 71045; 71275; 80048; 80053; 80202; 81001; 82805; 83605; 83880; 84484; 84703; 85025; 87040; 87081; 87086; 87428; 93005; 93010; 96374; 96375; J0248; J0696; J1100; J1650; J2543; J3373; J7030; J7050; U0002